=== PATIENT | male | born 2000 | race Caucasian/White ===

== ENCOUNTER → 2024-09-29 | Outpatient (CLI) | payer OTHER ==
--- NOTE | 2024-10-01 21:00 | CT ---
EXAMINATION TYPE: CT foot RT wo con DATE OF EXAM: 09/29/2024 5:18 PM COMPARISON: None. CLINICAL INDICATION: Male, 23 years old with history of S97.81XA CRUSHING INJURY OF RIGHT FOOT, crush ing injury TECHNIQUE: Axial images at 3 mm thick sections. Reconstructed images in sagittal plane. Three-D reconstructed im ages performed on a separate computer forensics investigator are reviewed. Contrast used: mL of , (none if empty) Oral contrast used: (none if empty) FINDINGS: No acute fractures evident. Alignment appears normal. Joint spaces are sure. There is concern for ligamentous injury, consider MRI for additional workup. Follow up exams can be p erformed as clinically indicated. Soft tissues appear normal. Ankle mortise appears intact. IMPRESSION: 1. NO SUSPICIOUS ACUTE OSSEOUS ABNORMALITY RADIOGRAPHICALLY APPARENT. [facility], , 10/01/2024 8:58 PM
== END | disposition home or self-care (01) ==
LOC: RADCTMAIN 16:27
PROVIDERS: ATTEND Orthopaedic Surgery
DX: S97.81XA Crushing injury of right foot, initial encounter (principal)